=== PATIENT | male | born 1965 | race Caucasian/White ===

== ENCOUNTER 2017-01-26 12:10 | Emergency (ER) | payer OTHER ==
[2017-01-26] MEDS ORDERED: LIDOCAINE 2% UROJECT 10 ML ONE (12:47)
== END 2017-01-26 13:24 | disposition home or self-care (01) ==
LOC: ED 12:10
DX: K62.5 Hemorrhage of anus and rectum (principal); R19.8 Other specified symptoms and signs involving the digestive system and abdomen; I25.2 Old myocardial infarction; E78.5 Hyperlipidemia, unspecified; I10 Essential (primary) hypertension; J45.909 Unspecified asthma, uncomplicated; F17.210 Nicotine dependence, cigarettes, uncomplicated; Z79.899 Other long term (current) drug therapy; Z88.0 Allergy status to penicillin